=== PATIENT | female | born 1955 | race Caucasian/White ===

== ENCOUNTER 2019-01-10 14:23 | Outpatient (CLI) | payer MEDICARE, MEDICAID ==
--- NOTE | 2019-01-10 15:35 | RAD ---
RIGHT SHOULER 3 VIEWS: Date: 01/10/19 INDICATION: Pain. FINDINGS: There is no fracture or dislocation. 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 IMPRESSION: No acute osseous abnormality of right shoulder. Incidental note of calcification overlying the right axilla, which may be related to granulomatous ca lcification within the lymph node. Correlate clinically. POS: MARIA LUISA
== END 2019-01-10 14:24 | disposition home or self-care (01) ==
LOC: BICRAD 14:23
PROVIDERS: ATTEND Family Medicine
DX: M25.511 Pain in right shoulder (principal); M19.011 Primary osteoarthritis, right shoulder; M79.9 Soft tissue disorder, unspecified

== ENCOUNTER 2019-06-28 12:52 | Outpatient (CLI) | payer MEDICAID ==
--- NOTE | 2019-06-28 13:22 | RAD ---
XR Chest Pa Lat STANDARD HISTORY: COPD COMPARISON: None FINDINGS: The heart size is normal. The lungs are well expanded without focal areas of consolidation, pneumothorax or pleural effusions. There is a 3.6 cm mass in the left lower lobe. IMPRESSION: 3.6 cm left lower lobe mass. Further evaluation with contrast enhanced CT scan is recomme nded
--- NOTE | 2019-06-28 13:38 | ULT ---
Ultrasound thyroid: DATE: 06/28/2019 HISTORY: 63-year-old female with thyroid nodule COMPARISON: None available FINDINGS: Isthmus: 0.4 cm AP. Right lobe: 2.6 x 5.4 x 3.1 cm. Left lobe: 1.6 x 4.8 x 1.6 cm. There aren't numerous discrete focal thyroid lesions, at least 5 in the right lobe and at least 5 in the left lobe. The largest lesion is a complex, well-circumscribed, 2.2 x 1.9 x 2.0 cm mixed cystic and solid round lesion at the upper-mid pole of the right lobe. The majority of the volume is cystic. The solid-appearing components have no blood flow demonstrated by Doppler, and therefore this is very unl ikely to represent a neoplastic tumor. 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 There are several other complex solid and cystic lesions bilaterally, including a 0.8 x 0.6 x 0.8 cm lesion at the lower pole of the right lobe, a 0.9 x 0.8 x 0.7 cm lesion at the lower pole of the left lobe, and a 0.7 x 0.5 x 0.6 cm lesion at the upper pole of the left lobe. Some of the small nodules in the left lobe appears solid. Other than the 2.2 cm complex cystic mass in the right lobe, none of the other lesions are greater th an 1 cm. Therefore, no fine-needle aspiration and no follow-up is recommended. IMPRESSION: 1. Large number of bilateral thyroid nodules. 2. The largest is a complex 2.2 cm mixed cystic and solid lesion in the right lobe, probably a colloi d cyst. 3. The rest of the nodules are all less than 1 cm. 4. No fine-needle aspiration biopsy and no follow-up recommended.
== END 2019-06-28 12:53 | disposition home or self-care (01) ==
LOC: BICULT 12:52
PROVIDERS: ATTEND Family Medicine
DX: E04.2 Nontoxic multinodular goiter (principal); J44.9 Chronic obstructive pulmonary disease, unspecified; R91.8 Other nonspecific abnormal finding of lung field
CPT/HCPCS: 71046; 76536

== ENCOUNTER 2019-07-18 07:23 | Outpatient (CLI) | payer MEDICARE, MEDICAID ==
--- NOTE | 2019-07-18 08:23 | CT ---
CT chest with IV contrast HISTORY: Left lung mass. FINDINGS: Centered within the lateral base of the left lower lobe is an oval slightly spiculated hete rogeneous soft tissue density mass measuring up to 3.9 cm x 3.4 cm x 2.9 cm. A bleb is adjacent to the superior margin. Slightly more inferior and posterior, an oval soft tissue density mass abuts the posterolateral pleur a and measures up to 1.3 cm x 1.0 cm x 0.9 cm. Lungs are otherwise hyperinflated with scattered areas of parenchymal scarring. A 2.2 cm cyst is part ially visualized within the right thyroid lobe. Borderline and slightly enlarged lymph nodes include a 1.7 cm left hilar lymph node, a 1.6 cm lower right paratracheal lymph node, and a 1.5 cm pr ecarinal lymph node. There is calcification in the arterial structures. Old left rib fractures. IMPRESSION: Left lower lobe lung masses as detailed above. Primary lung neoplasm is most likely. Ther e are borderline enlarged mediastinal lymph nodes worrisome for metastatic involvement. Please consider pulmonary medicine evaluation. Radionucleotide PET scan could be used to evaluate for lymph node involvement. Emphysema. Atherosclerosis.
[2019-07-18] MEDS ORDERED: Iopamidol-370 76% 500 ML 1 ML ONE (14:29)
== END 2019-07-18 07:24 | disposition home or self-care (01) ==
LOC: BICCT 07:23
PROVIDERS: ATTEND Family Medicine
DX: R91.8 Other nonspecific abnormal finding of lung field (principal)
CPT/HCPCS: 71260; 82565; Q9967

== ENCOUNTER 2021-04-14 14:37 | Emergency (ER) | payer MEDICARE, MEDICAID ==
[2021-04-14] MEDS ORDERED: Ondansetron PF 4 MG/2 ML Vial ONE (16:19)
== END 2021-04-14 16:21 | disposition left against medical advice (07) ==
LOC: ERS 14:37
DX: D49.6 Neoplasm of unspecified behavior of brain (principal); J44.9 Chronic obstructive pulmonary disease, unspecified; F17.210 Nicotine dependence, cigarettes, uncomplicated; Z85.118 Personal history of other malignant neoplasm of bronchus and lung; Z85.41 Personal history of malignant neoplasm of cervix uteri
CPT/HCPCS: 70450; 80053; 84484; 85025; 93005; 96374; J2405